=== PATIENT | female | born 1990 | race Caucasian/White ===

== ENCOUNTER 2021-07-26 18:45 | Emergency (ER) | payer MEDICAID ==
[~2021-07-26] VITALS: Ht 165.1 cm; Wt 66.7 kg
--- NOTE | 2021-07-26 19:56 | NUR ---
RECEIVED PATIENT AWAKE , ORIENTED X 4 , COMPLAINS OF RIGHT FACIAL PAIN 7/10 , SLIGHTLY SWOLLEN ,
[2021-07-26] MEDS ORDERED: KETOROLAC TROMETHAMINE 30 MG INJ IVP ONE (20:30)
[2021-07-26] MEDS ORDERED: KETOROLAC TROMETHAMINE 30 MG INJ ONE (20:35)
--- NOTE | 2021-07-26 20:35 | NUR ---
PATIENT WAS PICKED UP FOR CT OF THE FACIAL
[2021-07-26 20:42] LABS: HEMATOCRIT 39.9 % (31.2-41.9); MEAN CORPUSCULAR HEMOGLOBIN 30.1 uug (24.7-32.8); MEAN CORPUSCULAR VOLUME 88.1 fL (75.5-95.3); PLATELET COUNT (AUTO) 408 K/uL (179-408)
[2021-07-26 20:46] LABS: CARBON DIOXIDE 28 mmol/L (21-32); CHLORIDE 104 mmol/L (98-107); CREATININE 0.7 mg/dL (0.6-1.3); GLUCOSE 90 mg/dL (74-106); POTASSIUM 3.6 mmol/L (3.5-5.1); UREA NITROGEN, BLOOD 7 mg/dL (7-18)
[2021-07-26 20:51] LABS: ALANINE AMINOTRANSFERASE 25 U/L (14-59); ALKALINE PHOSPHATASE 62 U/L (50-136); ASPARTATE AMINOTRANSFERASE 6 U/L (15-37); BILIRUBIN,DIRECT 0.1 mg/dL (0.0-0.2); BILIRUBIN,TOTAL 0.5 mg/dL (0.2-1.0)
--- NOTE | 2021-07-26 21:00 | NUR ---
PATIENT IS BACK FROM CT SCAN
[2021-07-26] MEDS ORDERED: IOHEXOL 300MG/ML 100 ML INFUS..BTL ONE (21:14)
[2021-07-26] MEDS ORDERED: IV NORMAL SALINE 250 ML IV ONE (21:14)
[2021-07-26] MEDS ORDERED: SWABABLE VALVE TRANSFER SET EA MC ONE (21:14)
--- NOTE | 2021-07-26 22:00 | NUR ---
MD SPOKE TO THE PATIENT AT THE BEDSIDE ALONG WITH SWEDISH SPEAKING FRIEND , EXPLAINED RESULTS OF CTSCAN AND RECOMMENDATIONS, VERVALIZES UNDERSTANDING
[2021-07-26] MEDS ORDERED: IBUP-1955 PO (22:20)
[2021-07-26] MEDS ORDERED: AMOX-427 PO (22:20)
== END 2021-07-26 22:43 | disposition home or self-care (01) ==
LOC: ER 18:51
DX: R51.9 Headache, unspecified (principal); J32.0 Chronic maxillary sinusitis; F17.210 Nicotine dependence, cigarettes, uncomplicated
CPT/HCPCS: 36415; 70487; 80048; 80076; 84702; 85025; 96374; 99285; J1885; Q9967; A4663

== ENCOUNTER 2022-07-04 19:51 | Emergency (ER) | payer MEDICAID, OTHER ==
[~2022-07-04] VITALS: Ht 165.1 cm; Wt 61.2 kg
[~2022-07-04 19:51] MED LIST: AMOX-427 PO; IBUP-1955 PO
--- NOTE | 2022-07-04 20:10 | NUR ---
Dr Power at bedside MSE in progress
[2022-07-04] MEDS ORDERED: ASPIRIN 81 MG TAB.CHEW ONE (20:28)
[2022-07-04] MEDS ORDERED: MAG HYDROX/AL HYDROX/SIMETH 30 ML LIQUID UDC ONE (20:29)
[2022-07-04] MEDS ORDERED: PANTOPRAZOLE SODIUM 40 MG TABLET.DR PO ONE ×2 (20:29→20:30)
[2022-07-04] MEDS ORDERED: LIDOCAINE VISCUS 2% 15 ML UDC ONE (20:29)
[2022-07-04] MEDS ORDERED: DICYCLOMINE HCL LIQ 10 MG/5 ML UDC ONE (20:29)
[2022-07-04] MEDS ORDERED: LIDOCAINE VISCUS 2% 15 ML UDC MM ONE (20:30)
[2022-07-04] MEDS ORDERED: DICYCLOMINE HCL LIQ 10 MG/5 ML UDC PO ONE (20:30)
[2022-07-04] MEDS ORDERED: ASPIRIN 81 MG TAB.CHEW PO ONE (20:30)
[2022-07-04] MEDS ORDERED: MAG HYDROX/AL HYDROX/SIMETH 30 ML LIQUID UDC PO ONE (20:30)
[2022-07-04 20:46] LABS: HEMATOCRIT 38.7 % (31.2-41.9); MEAN CORPUSCULAR HEMOGLOBIN 29.7 uug (24.7-32.8); MEAN CORPUSCULAR VOLUME 88.9 fL (75.5-95.3); PLATELET COUNT (AUTO) 340 K/uL (179-408)
[2022-07-04 21:02] LABS: CARBON DIOXIDE 28 mmol/L (21-32); CHLORIDE 104 mmol/L (98-107); CREATININE 0.5 mg/dL (0.6-1.3); GLUCOSE 93 mg/dL (74-106); POTASSIUM 4.8 mmol/L (3.5-5.1); UREA NITROGEN, BLOOD 14 mg/dL (7-18)
[2022-07-04 21:13] LABS: ALANINE AMINOTRANSFERASE 18 U/L (14-59); ALKALINE PHOSPHATASE 52 U/L (50-136); ASPARTATE AMINOTRANSFERASE 9 U/L (15-37); BILIRUBIN,DIRECT 0.1 mg/dL (0.0-0.2); BILIRUBIN,TOTAL 0.5 mg/dL (0.2-1.0); TOTAL PROTEIN, SERUM 7.7 g/dL (6.4-8.2)
--- NOTE | 2022-07-04 21:30 | NUR ---
Patient is a/ox4, NAD noted
[2022-07-04] MEDS ORDERED: OMEP40CA21 PO (21:44)
[2022-07-04 21:56] VITALS: BP 115/73
--- NOTE | 2022-07-04 21:56 | NUR ---
Patient discharged to home in stable condition. Written and verbal after care instructions given. Patient verbalizes understanding of instructions. Stressed follow up or return to ER for worsening s/s. Patient is a/ox4, NAD noted, patient is able to walk with steadt gait, accompanied by her family/friend
== END 2022-07-04 21:57 | disposition home or self-care (01) ==
LOC: ER 19:51
DX: R10.13 Epigastric pain (principal); R07.9 Chest pain, unspecified; M54.6 Pain in thoracic spine; F17.210 Nicotine dependence, cigarettes, uncomplicated
CPT/HCPCS: 36415; 71045; 83690; 84484; 85025; 93005; A4663